=== PATIENT | female | born 1945 | race Caucasian/White ===

== ENCOUNTER 2017-02-12 14:11 | Emergency (ER) | payer OTHER ==
[~2017-02-12] VITALS: Ht 154.9 cm; Wt 88.9 kg
[2017-02-12] MEDS ORDERED: FUROSEMIDE40 MG PO (14:22)
[2017-02-12] MEDS ORDERED: JANTOVEN5 MG PO (14:29)
[2017-02-12] MEDS ORDERED: LOSARTAN POTASS25 M1 PO (14:30)
[2017-02-12] MEDS ORDERED: PACERONE100 MG PO (14:30)
[2017-02-12] MEDS ORDERED: ESCITALOPRAM OX10 MG PO (14:30)
[2017-02-12] MEDS ORDERED: COREG25 MG PO (14:30)
[2017-02-12] MEDS ORDERED: ALLEGRA60 M2 PO (14:31)
[2017-02-12] MEDS ORDERED: ZANTAC 150150 MG PO (14:31)
[2017-02-12] MEDS ORDERED: POTASSIUM GLUC550 M1 PO (14:31)
[2017-02-12] MEDS ORDERED: VITAMIN D31000 IU PO (14:31)
[2017-02-12] MEDS ORDERED: VITAMIN C1000 M5 PO (14:32)
[2017-02-12] MEDS ORDERED: Oscal,Oyster S500 MG PO (14:32)
[2017-02-12] MEDS ORDERED: CYCLOBENZAPRINE5 M3 PO (15:59)
[2017-02-12] MEDS ORDERED: NORCO 5-325 TA1 EACH PO (15:59)
== END 2017-02-12 16:01 | disposition home or self-care (01) ==
LOC: ED 14:11
DX: S29.019A Strain of muscle and tendon of unspecified wall of thorax, initial encounter (principal); Z79.01 Long term (current) use of anticoagulants; Z79.899 Other long term (current) drug therapy; W18.09XA Striking against other object with subsequent fall, initial encounter; Y93.89 Activity, other specified; Y92.020 Kitchen in mobile home as the place of occurrence of the external cause; Y99.9 Unspecified external cause status